=== PATIENT | female | born 1980 | race Hispanic/Latino ===

== ENCOUNTER 2016-12-03 22:31 | Emergency (ER) | payer OTHER ==
[~2016-12-03] VITALS: Ht 160 cm; Wt 121.1 kg
[~2016-12-03 22:31] MED LIST: ALPRAZOLAM1 M2 PO; BACTROBAN OINT.15 GM TOP; DEXILANT60 M1 PO; FLEXERIL10 MG PO; IBUPROFEN800 MG PO; KETOROLAC TROME10 M1 PO; MOTRIN800 MG PO; ORPHENADRINE C100 MG PO; PERCOCET 325 MG1 TA2 PO; VICODIN5-300 PO
[2016-12-03 22:33] VITALS: BP 150/87
[2016-12-03] MEDS ORDERED: MEDROL4 M2 PO (23:18)
[2016-12-03] MEDS ORDERED: PERCOCET 5-3251 EACH PO (23:18)
[2016-12-03] MEDS ORDERED: CYCLOBENZAPRINE10 M1 PO (23:18)
--- NOTE | 2016-12-03 23:19 | ED NECK/BACK PAIN COMPLAINT ---
History of Present Illness General Chief Complaint: Low Back Pain/Injury Stated Complaint: BACK PAIN SINCE YEST, NOW RADIATING DOWN L LEG Source: patient Exam Limitations: no limitations Vital Signs & Intake/Output Vital Signs & Intake/Output Vital Signs Date Time Temp Pulse Resp B/P Pulse O2 O2 Flow FiO2 Ox Delivery Rate 12/033 99.2 100 20 150/87 95 Room Air ED Intake and Output 12/04 0000 12/03 1200 Intake Total 0 Output Total Balance 0 Intake, Oral 0 Patient 267 lb Weight Allergies Coded Allergies: NO KNOWN ALLERGIES (06/15/16) Reconcile Medications Alprazolam 1 MG TABLET 1 TAB PO TIDPRN ANXIETY (Reported) Cyclobenzaprine HCl 10 MG TABLET 1 TAB PO TID SPASMS CYCLOBENZAPRINE HCL (Flexeril) 10 MG TAB 1 TAB PO 4 TIMES/DAY PRN MUSCLE SPASM CYCLOBENZAPRINE HCL (Flexeril) 10 MG TAB 1 TAB PO Q8H PRN spasm/pain Avoid operating motor vehicle or heavy machinery Dexlansoprazole (Dexilant) 60 MG CAP.DR.BP 1 CAP PO DAILY NEEDED SPASMS ( Reported) Ibuprofen (Motrin) 800 MG TAB 1 TAB PO Q8H PRN PAIN Ketorolac Tromethamine 10 MG TABLET 1 TAB PO Q6P PRN NECK PAIN PT GIVEN IM DOSE IN ED Methylprednisolone. (Medrol) 4 MG TAB.DS.PK 1 DP PO AD SCIATICA 6 on day 1 then reduce by one tablet daily until gone Orphenadrine Citrate 100 MG TABLET.ER 1 TAB PO BIDP PRN NECK SPASMS Oxycodone HCl/Acetaminophen (Percocet 5-325 MG Tablet) 5 MG-325 MG TABLET 1-2 TAB PO Q6P PRN pain OXYCODONE HCL/ACETAMINOPHEN (Percocet 5-325 MG Tablet) 325 MG/5 MG TAB 1 TAB PO Q6 PRN pain Triage Note: PT TO TRIAGE WITH C/O LEFT LOWER BACK PAIN 8/10 RADIATING TO LLE SINCE YESTERDAY. PT DENIES INJURY, TOOK TRAMADOL AT 5PM WITH NO RELIEF. NO OTHER COMPLAINTS. VSS. Triage Nurses Notes Reviewed? yes Onset: Abrupt Duration: day(s): (1), constant, continues in ED Timing: recent history Quality/Severity: moderate, severe Location: lumbar spine Radiation: none : No Patient currently breastfeeds: No HPI: 36-year-old female comes into emergency room with complaints of left lower back pain that radiates down into her left buttocks region down her left leg. Pain started this morning. Pain is getting progressively worse. Worse with any type of range of motion. Denies any urinary bowel dysfunction. Denies any recent falls or trauma. (JUSTYNA HUDSON) Past History Travel History Traveled to [place] past 21 day No Medical History Any Pertinent Medical History? see below for history Neurological: NONE EENT: NONE Cardiovascular: TETROLOGY OF FALOT Respiratory: NONE Gastrointestinal: NONE Hepatic: NONE Renal: NONE Musculoskeletal: NONE Psychiatric: NONE Endocrine: hypothyroidism Blood Disorders: NONE Cancer(s): NONE [employer]/Reproductive: NONE Surgical History Surgical History: CARDIAC SURGERY X2 FOR T OF F Psychosocial History What is your primary language Mauritanian Tobacco Use: Quit >30 days ago Family History Hx Contributory? No (JUSTYNA HUDSON) Review of Systems Review of Systems Constitutional: Reports: no symptoms. Eyes: Reports: no symptoms. Ears, Nose, Throat, Mouth: Reports: no symptoms. Respiratory: Reports: no symptoms. Cardiovascular: Reports: no symptoms. Gastrointestinal/Abdominal: Reports: no symptoms. Musculoskeletal: Reports: see HPI. Skin: Reports: no symptoms. Neurological/Psychological: Reports: no symptoms. All Other Systems: Reviewed and Negative (JUSTYNA HUDSON) Physical Exam Physical Exam General Appearance: well developed/nourished, mild distress Head: atraumatic Eyes: Bilateral: normal appearance. Ears, Nose, Throat, Mouth: hearing grossly normal, moist mucous membrane Neck: normal inspection, full range of motion Respiratory: normal breath sounds, no respiratory distress Cardiovascular: regular rate/rhythm Back: normal inspection Extremities: normal range of motion Motor: Deficit L4 Right: No Deficit L4 Left: No Deficit L5 Right: No Deficit L5 Left: No Deficit S1 Right: No Deficit S1 Right: No Neurologic/Psych: awake, alert, oriented x 3, normal mood/affect Skin: intact, normal color, warm/dry Comments: 5 out of 5 strength in the lower extremity, normal dorsiflexion of great toe bilaterally, gross sensation is intact, patellar tendon reflex 2+ bilaterally. (JUSTYNA HUDSON) Progress Differential Diagnosis: AAA, aortic dissection, C spine injury, carotid dissection, cauda equina syn, herniated disc, myofascial strain, pyelo/UTI, sciatica, spinal cord inj, thoracic outlet syn, T/L spine injury, ureterolithiasis Plan of Care: Current Medications Sig/Rc Start time Last Medication Dose Stop Time Status Admin Oxycodone/ 2 TAB ONCE ONE 12/035 UNVr Acetaminophen 12/04 2315 (Percocet) Comments: 12/04/2016 12:16:46 AM Patient clinically looks well. Nontoxic-appearing. In no apparent distress. Symptoms are most consistent with sciatica. No motor deficits. Follow-up with primary care doctor. Treated symptomatically. (WALTER PEPE,JUSTYNA) Departure Departure Disposition: HOME OR SELF CARE Condition: Stable Clinical Impression Primary Impression: Sciatica Referrals: DANDRE HURST DO (PCP/Family) Additional Instructions: Take Percocet and Medrol Dosepak and Flexeril as prescribed. Follow-up with your primary care doctor. Return if any concerns worsening symptoms. Please go over all results of today's visit with your primary care doctor. Contact your primary care doctor to let them know you were here in the emergency room. There may be nonspecific findings which may not be related to your visit today here in the emergency room but may require further evaluation and chronic monitoring by your primary care doctor. If you had a laceration today the chance of foreign body always remains. You should follow-up with your primary care doctor for recheck in 3-5 days for a wound check. If you had an x-ray done there is a chance that a fracture could have been missed on initial read and you should follow-up with your primary care doctor for repeat x-rays if symptoms persist. If your blood pressure was elevated here in the emergency room please have rechecked by her primary care doctor within the next 48 hours by your primary care doctor. If you were prescribed a narcotic here in the emergency room or any type of controlled substances you're not allowed to drive while taking this medication or operate any type of heavy machinery. Narcotics can make you feel lightheaded dizziness nausea and can cause constipation. You may need to pickle pumper a stool softener. Thank you for choosing [facility] emergency room. Please return to the emergency room immediately if you have any other concerns worsening of symptoms. Departure Forms: Customer Survey General Discharge Information Prescriptions: Current Visit Scripts Oxycodone HCl/Acetaminophen (Percocet 5-325 MG Tablet) 1-2 TAB PO Q6P PRN pain #20 TAB Cyclobenzaprine HCl 1 TAB PO TID #20 TAB Methylprednisolone. (Medrol) 1 DP PO AD #1 DP 6 on day 1 then reduce by one tablet daily until gone (JUSTYNA HUDSON) PA/SENIOR ACCOUNTING SPECIALIST Co-Sign Statement Statement: ED Attending supervision documentation- [] I saw and evaluated the patient. I have also reviewed all the pertinent lab results and diagnostic results. I agree with the findings and the plan of care as documented in the PA's/SENIOR ACCOUNTING SPECIALIST's documentation. [x] I have reviewed the ED Record and agree with the PA's/SENIOR ACCOUNTING SPECIALIST's documentation. [] Additions or exceptions (if any) to the PAs/SENIOR ACCOUNTING SPECIALIST's note and plan are summarized below: [] (CHAY PROCTOR,ERUM Clements)
== END 2016-12-03 23:25 ==
LOC: ERH 22:31
DX: M54.42 Lumbago with sciatica, left side (principal)

== ENCOUNTER 2016-12-20 02:56 | Inpatient (IN) | payer OTHER ==
[~2016-12-20] VITALS: Ht 160 cm; Wt 123.8 kg
[~2016-12-20 02:56] MED LIST changes: +CYCLOBENZAPRINE10 M1 PO; +MEDROL4 M2 PO; +PERCOCET 5-3251 EACH PO
--- NOTE | 2016-12-20 09:36 | Admission Core Measures ---
Admission Meds I reviewed the following Meds: Current Medications Sig/Rc Start time Last Medication Dose Stop Time Status Admin Cefazolin Sodium 3,000 MG ONCE 12/20 NR (Kefzol-Ancef Inj) 12/20 2358 Heparin Sodium 5,000 UNIT ONCE 12/20 NR (Porcine) 12/20 2358 Acute Coronary Syndrome Inclusion Criteria ACS Diagnosis No Inpatient Core Measures LDL Reminder: If No, please order W/I first 24hr of stay Congestive Heart Failure Inclusion Criteria CHF Diagnosis No Cerebrovascular accident Inclusion Criteria CVA/TIA Diagnosis No Inpatient Core Measures Bedside Swallow Eval Reminder: If BSE failed, place ST order Antithrombotic Reminder: Order Antithrombotic Medication by end of day 2 Antithrombotic Reminder: Document Reason Antithrombotic Not ordered by end of day 2 AFIB/Flutter Reminder: If Present, add to problem list AFIB/Flutter Reminder: Order Anticoag Medication for pts with AFIB/Flutter Atherosclerosis Reminder: If Present, add to problem list LDL Reminder: If No, please order W/I first 24hr of stay PT Order Reminder: If No, please order Venous thromboembolism Inpatient Core Measures VTE Risk Factors: Age > 40, Obesity, Surgery [facility] prophylaxis d/t No contraindications No VTE Pharm Prophylaxis d/t No contraindications Inclusion Criteria - Per Current guidelines, there needs to be overlap - treatment for the first 5 days of Warfarin therapy. - Parenteral Anticoagulation (IV or SC) needs to be - given along with Warfarin therapy. VTE Diagnosis No VTE Type NONE VTE Confirmed by (Test) NONE Problem List As ranked by this Provider includes Assessment & Plan 1. S/P laparoscopic sleeve gastrectomy 2. Morbid obesity HOME MEDS Home Med List Alprazolam 1 MG TABLET 1 TAB PO TIDPRN ANXIETY (Reported) Cyclobenzaprine HCl 10 MG TABLET 1 TAB PO TID SPASMS CYCLOBENZAPRINE HCL (Flexeril) 10 MG TAB 1 TAB PO 4 TIMES/DAY PRN MUSCLE SPASM CYCLOBENZAPRINE HCL (Flexeril) 10 MG TAB 1 TAB PO Q8H PRN spasm/pain Dexlansoprazole (Dexilant) 60 MG CAP.DR.BP 1 CAP PO DAILY NEEDED SPASMS ( Reported) Ibuprofen (Motrin) 800 MG TAB 1 TAB PO Q8H PRN PAIN Ketorolac Tromethamine 10 MG TABLET 1 TAB PO Q6P PRN NECK PAIN Methylprednisolone. (Medrol) 4 MG TAB.DS.PK 1 DP PO AD SCIATICA Orphenadrine Citrate 100 MG TABLET.ER 1 TAB PO BIDP PRN NECK SPASMS Oxycodone HCl/Acetaminophen (Percocet 5-325 MG Tablet) 5 MG-325 MG TABLET 1-2 TAB PO Q6P PRN pain OXYCODONE HCL/ACETAMINOPHEN (Percocet 5-325 MG Tablet) 325 MG/5 MG TAB 1 TAB PO Q6 PRN pain
--- NOTE | 2016-12-20 09:50 | Patient Discharge Instructions ---
Discharge Instructions General Discharge Information You were seen/treated for: morbid obesity You had these procedures: laparoscopic sleeve gastrectomy, hiatal hernia repair (12/20/16) Watch for these problems: fever>101.3, increased pain, redness/swelling/drainage, abdominal pain, dizziness, shortness of breath No bath, but you may shower: Yes Other wound care: ok to remove outer dressings. leave white steri strips in place. expect drainage from previous drain site, for which you may use dry guaze to cover until the drainage stops. Diet Continue normal diet: No Recommended Diet: Bariatric Activity Full Activity/No Limits: No Activity Self Limited: Yes Pounds, do NOT lift more than: 10 Other activity limits: walk frequently Acute Coronary Syndrome Inclusion Criteria At DC or during hospital stay patient has or had the following: ACS DIAGNOSIS No Discharge Core Measures Meds if any: Prescribed or Continued at Discharge Meds if any: NOT Prescribed or Continued at Discharge Congestive Heart Failure Inclusion Criteria At DC or during hospital stay patient has or had the following: CHF DIAGNOSIS No Discharge Core Measures Meds if any: Prescribed or Continued at Discharge Meds if any: NOT Prescribed or Continued at Discharge Cerebrovascular accident Inclusion Criteria At DC or during hospital stay patient has or had the following: CVA/TIA Diagnosis No Discharge Core Measures Meds if any: Prescribed or Continued at Discharge Meds if any: NOT Prescribed or Continued at Discharge Venous thromboembolism Inclusion Criteria VTE Diagnosis No VTE Type NONE VTE Confirmed by (Test) NONE Discharge Core Measures - Per Current guidelines, there needs to be overlap - treatment for the first 5 days of Warfarin therapy. - If discharged on Warfarin prior to 5 days of - overlap therapy, the patient will need to be - assessed for post discharge needs including - *Post discharge parental anticoagulation - *Warfarin and/or parental anticoagulation education - *Follow up date to check INR post discharge At least 5 days overlap therapy as Inpatient No Meds if any: Prescribed or Continued at Discharge Note: Overlap Therapy is Warfarin and Anticoagulant Meds if any: NOT Prescribed or Continued at Discharge
--- NOTE | 2016-12-20 09:54 | Surg Short-stay <48hrs Dis Sum ---
Visit Information Visit Dates Admission Date: 12/20/16 Discharge Date: 12/23/16 Surgical Short Stay DC Summary Admission Diagnosis: morbid obesity Final Diagnosis: morbid obesity Procedure(s): laparoscopic sleeve gastrectomy, hiatal hernia repair (12/20/16) Summary/Significant Findings: Electively scheduled laparoscopic sleeve gastrectomy and hiatal hernia repair by on 12/20/16, which went routinely. Stage 1 bariatric diet started immediately post-operatively. Pain medication transitioned from iv to oral prior to discharge. Her discharge was held an extra day due to worsened nausea on post -op day #2. The VIKASH drain removed prior to discharge to home on post-op day#3. She was no longer nauseous and tolerating stage 1 bariatric diet at the time of her discharge. Condition at Discharge: stable Discharge Disposition: home or self care Discharge instructions provided to patient/family: Yes Post discharge follow-up plan: follow up appointment within one week weekly bariatric stage diet advancements as tolerated
--- NOTE | 2016-12-20 14:01 | Operative Report ---
Operative/Inv Procedure Report Surgery Date: 12/20/16 Name of Procedure: Laparoscopic Sleeve Gastrectomy, Laparoscopic Hiatal hernia repair Pre-Operative Diagnosis: Morbid Obesity BMI 49, Hiatal hernia Post-Operative Diagnosis: Same Estimated Blood Loss: less than 50ml Surgeon/Student Assistant: VIRIDIANA GAGE DO Anesthesia: general endotracheal tube IV Fluids: 1200 cc Drains: 10 Fr RUQ VIKASH Drain Specimens: Stomach Complications: None Condition: Stable Operative Indication: This is a 36-year-old female that presented to the office for workup for bariatric surgery. After appropriate workup was completed we discussed with the patient the band, the sleeve, and the gastric bypass. The patient chose to undergo a sleeve gastrectomy. All risks including but not limited to bleeding, infection, leak, stricture, injury to surrounding bowel/esophagus/stomach/liver/ spleen, long-term reflux, DVT/PE, and mortality of 08/999 patients were discussed in detail. Patient understood everything and decided to proceed. Operative/Procedure Note Note: The patient was brought to the operating room and placed on the operating room table in supine position. Venodyne stockings were placed and adequate general endotracheal anesthesia was obtained. The patient was prepped and draped in standard surgical fashion. Began the procedure by making a 2 cm transverse incision supraumbilically and slightly to the left of the midline. Then using a 12 mm clear Visiport and a 10 mm 0 laparoscope, the abdominal cavity was accessed. Great care was taken to go through the anterior rectus sheath, the posterior rectus sheath, and through the peritoneum. Once we entered the peritoneum the abdominal cavity was insufflated to 15 mmHg. Upon initial examination no obvious gross pathology was seen. Accessory trocars were placed, 5 mm in the epigastrium for the Lazara liver retractor. The retractor was inserted and the liver was retracted anteriorly exposing the hiatus, small hiatal hernia was seen. 5 mm ports were placed in the right and left upper quadrant, a 5 mm left lateral port, and a 15 mm right lateral port. Some omental adhesions from anterior abdominal wall were lysed usign harmonic scalpel. Began the procedure by mobilizing the greater curvature of the stomach approximately 7 cm from the pylorus. Once the retrogastric space was reached the whole greater curvature was mobilized maintaining hemostasis using Harmonic scalpel. Full hiatal dissection was performed, a small hiatal hernia was seen. The left román of the diaphragm was dissected away from the esophagus, reducing the hernia sac. We then brought our attention to the right román, the pars flaccida was opened until the right román was clearly visualized. Following this the right román was dissected away from the esophagus as well and the esophagus was circumferentially dissected out of the chest. At the completion of dissection the esophagus was in the abdominal cavity for about 2-3 cm. The esophagus was retracted anteriorly and the hiatus was closed using 2-0 Tycron suture. At the completion of the closure there was ample room for the esophagus and the hiatus was adequately closed. Posterior adhesions were taken down using Harmonic scalpel as well. Once the stomach was adequately mobilized a 38 Montenegrin bougie was inserted and placed along the lesser curvature of the stomach. Once the bougie was in the appropriate position will began creating our sleeve, two 60 mm black staple loads with seamguard followed by two 60 mm purple staple loads with seamguard as well and finished with a 45 mm puple plain load. Great care was taken to leave ample room at the incisura angularis, to prevent any twisting or kinking of the sleeve, to stay lateral to the esophagogastric fat pad, and to do a full fundal excision. At the completion of the staple line the staple line was examined, it appeared intact and no obvious bleeding was noted. The bougie was removed, the sleeve was lying nicely without any twisting or kinking. The resected stomach was removed through the right lateral port site. The port and the left upper quadrant were irrigated until clear. A 10 Montenegrin VIKASH drain was placed through the right upper quadrant incision under the liver and over the spleen. All ports were removed under direct visualization no obvious bleeding was noted. The 15 mm port site fascia was closed using 0 Vicryl suture. The skin was closed using 4-0 Monocryl. Steri-Strips and dressings were placed. The patient was successfully extubated and transferred to the recovery room in stable condition. The patient tolerated the procedure well with no complications. Findings: 3 cm hiatal hernia, 38 Fr Bougie CC: DANDRE HURST DO
[2016-12-20 16:00] VITALS: BP 142/70
--- NOTE | 2016-12-20 16:54 | PN- Bariatrics ---
Subjective Subjective: The patient seen this afternoon postoperatively. She reports being tired but otherwise relatively comfortable. She has started taking in a stage I diet and has no complaints of nausea. She has no other issues and denies any chest pain or difficulty breathing. Objective Vital Signs and I&Os Vital Signs Date Time Temp Pulse Resp B/P B/P Pulse O2 O2 Flow FiO2 Mean Ox Delivery Rate 12/20 1600 97.4 86 18 142/70 94 Room Air Room Air I's and O's: 1150 ML's in of lactated Ringer's/patient's hip to void/VIKASH 40 ML/ EBL less than 100 Physical Exam: Gen.: Sleepy but easily arousable and in no obvious distress Skin: Warm and dry Cardiac: S1-S2 regular Pulmonary: Bilateral breath sounds were equal good exchange Abdomen: Soft, obese, appropriate incisional tenderness, bowel sounds sluggish. VIKASH 1 holding suction with serosanguineous drainage and bulb. Surgical dressings are clean, dry, and intact. Extremities: Bilateral lower extremities are warm without calf tenderness or significant edema. Assessment/Plan Assessment/Plan Assessment: 36-year-old female status post laparoscopic sleeve gastrectomy. Postoperatively patient is progressing as expected and pains in adequate control. She is tolerating a stage I diet without nausea. Plan: Stage I diet until midnight been nothing by mouth for possible upper GI in the morning Out of bed and ambulate Continue current pain regiment Monitor for postoperative void Strict I's and O's GI and DVT prophylaxis Continue IV fluids until the morning GI and DVT prophylaxis 2 doses of prophylactic postoperative antibiotics Incentive spirometry Core Measures/Miscellaneous Venous Thromboembolism VTE Risk Factors: Age > 40, Obesity, Surgery VTE Contraindications: No Contraindications VTE Diagnosis: No VTE Type: NONE VTE Confirmed by (Test): NONE Beta Shelby Is Beta Shelby a Home Med? No Antibiotics Is Patient on Antibiotics? Yes If Yes: prophylaxis
--- NOTE | 2016-12-20 18:16 | NUR ---
NURSING NOTE: PT ARRIVED TO FLOOR AT 1600. PT A&O, VSS CHARTED. PT AMBULATED FROM STRETCHER TO ROOM. PT HAS NO C/O PAIN OR NAUSEA AT THIS TIME. EDUCATED ON DIET AND NEED FOR FREQUENT AMBULATION WITH VERBAL UNDERSTANDING. IST @ BEDSIDE.
[2016-12-20 22:50] VITALS: BP 116/68
[2016-12-21 06:14] VITALS: BP 122/78
--- NOTE | 2016-12-21 07:05 | PN- Bariatrics ---
See Addendum Subjective Subjective: The patient was seen this morning postoperatively day #1. She complains of some incisional soreness but is otherwise relatively comfortable. She was tolerating a stage I diet without nausea until midnight continues to be without nausea. She has no complaints of current time and denies any chest pain or difficulty breathing. Objective Vital Signs and I&Os Vital Signs Date Time Temp Pulse Resp B/P B/P Pulse O2 O2 Flow FiO2 Mean Ox Delivery Rate 12/21 0614 98.2 68 20 122/78 98 Room Air 12/21 0600 Room Air 12/21 0000 Room Air 12/21 0000 95 Room Air 12/20 2250 97.2 73 18 116/68 97 Room Air 12/20 2000 Room Air 12/20 1600 94 Room Air Room Air 12/20 1600 97.4 86 18 142/70 94 Room Air Room Air Intake & Output 12/21 0800 / 0000 / 1600 / 0800 12/20 0000 / 1600 Intake Total 1000 820 Output Total 610 850 Balance 390 -30 Intake, IV 1000 500 Intake, Oral 0 320 Output, 10 50 Drainage Output, Urine 600 800 Patient 273 lb Weight Physical Exam: Gen.: Alert and in no obvious distress Skin: Warm and dry without jaundice Cardiac: S1-S2 regular Pulmonary: Bilateral breath sounds are equal with good exchange Abdomen: Soft, obese, appropriate incisional tenderness, bowel sounds positive. VIKASH 1 holding suction with serosanguineous drainage in the bulb. Port sites are clean, dry, and intact. Extremities: Bilateral lower extremities are warm without calf tenderness or significant edema. Assessment/Plan Assessment/Plan Assessment: 28-year-old female status post lap scopic sleeve gastrectomy with hiatal hernia repair postoperative day 1. The patient is progressing as expected and her pain is under adequate control. Plan: Cancele upper GI for this morning and started a stage I diet Decrease IV fluids Follow-up morning labs 3 studies GI and DVT prophylaxis Continue current pain regiment Incentive spirometry Out of bed and ambulate Core Measures/Miscellaneous Venous Thromboembolism VTE Risk Factors: Age > 40, Obesity, Surgery VTE Contraindications: No Contraindications VTE Diagnosis: No VTE Type: NONE VTE Confirmed by (Test): NONE Beta Shelby Is Beta Shelby a Home Med? No Antibiotics Is Patient on Antibiotics? No
[2016-12-21 08:27] LABS: ABSOLUTE BASOPHIL COUNT 0 /CUMM (0.0-0.2); ABSOLUTE EOSINOPHIL COUNT 0 /CUMM (0.0-0.7); ABSOLUTE GRANULOCYTE CT 9.5 /CUMM (1.4-6.5); ABSOLUTE LYMPH COUNT 0.9 /CUMM (1.2-3.4); ABSOLUTE MONOCYTE COUNT 0.5 /CUMM (0.10-0.60); BASOPHIL % 0.1 % (0.0-2.0); EOSINOPHIL % 0 % (0-5); HEMATOCRIT 34.4 % (37-47); MEAN CORPUSCULAR HGB CONC 33.3 G/DL (33.0-37.0); MEAN CORPUSCULAR VOLUME 78.1 FL (81.0-99.0); MEAN PLATELET VOLUME 10.9 FL (7.4-10.4); PLATELET COUNT 269 /CUMM (130-400); RBC DISTRIBUTION WIDTH 15.1 % (11.5-14.5); RED BLOOD CELL CT 4.41 /CUMM (4.20-5.40)
[2016-12-21 09:08] LABS: GRANULOCYTE % 86.6 % (42.2-75.2)
--- NOTE | 2016-12-21 11:00 | NUR ---
NURSING NOTE: PT GIVEN HYCET FOR ABD PAIN AT 1016. AT 1055 NURSE CALLED TO ROOM BY PT BECAUSE SHE THOUGH SHE WAS HAVING A REACTION TO THE HYCET. PT STATES SHE IS VERY ITCHY, NO HIVES NOTED AT THIS TIME. BP 120/72, PULSE 68, TEMP 98.2, 98% ON RA. MY CHRISTIE AWARE AND 25MG IV BENADRYL ORDERED AND GIVEN. WILL CONTINUE TO MONITOR.
[2016-12-21] MEDS ORDERED: PROTONIX40 M3 PO (13:56)
[2016-12-21] MEDS ORDERED: DILAUDID2 M1 PO (13:56)
[2016-12-21 14:04] VITALS: BP 128/84
[2016-12-21 22:41] VITALS: BP 117/73
[2016-12-22 06:20] VITALS: BP 128/82
--- NOTE | 2016-12-22 07:31 | NUR ---
NURSING NOTE: PT C/O 04/29 ABOMINAL PAIN AND SLIGHT NAUSEA. PT PLACED RELETEX BRACELET BACK ON, ASKING FOR ULTRAM; ULTRAM GIVEN, Collette PEPE AWARE, PT GOING TO AMBULATE IN HALLWAY
--- NOTE | 2016-12-22 08:13 | PN- Bariatrics ---
See Addendum Subjective Subjective: Reports pain and nausea this morning. She spit up once this morning. She did well drinking yesterday and didn't have nausea until this morning. She is ambulating well. No dizziness. No shortness of breath. No chest pains. Voiding without difficulty. No flatus or bm yet. Objective Vital Signs and I&Os Vital Signs Date Time Temp Pulse Resp B/P B/P Pulse O2 O2 Flow FiO2 Mean Ox Delivery Rate 12/23 619 98.5 70 20 128/82 94 Room Air 12/22 0600 96 Room Air 12/21 2241 97.9 66 18 117/73 99 Room Air 12/21 2200 99 Room Air 12/21 1404 97.9 72 20 128/84 100 12/21 1400 98 Room Air Room Air 12/21 1328 Room Air Room Air Intake & Output 12/22 1600 12/22 0800 12/22 0000 12/21 1600 12/21 0800 12/21 0000 Intake Total 700 1320 1230 1000 820 Output Total 853 855 8975 610 850 Balance 370 800 130 390 -30 Intake, IV 600 896 590 5708 500 Intake, Oral 100 720 630 0 320 Number 0 Bowel Movements Output, 30 20 50 10 50 Drainage Output, Urine 525 840 1666 600 800 Patient 273 lb Weight Physical Exam: General - alert & oriented x 3. comfortable. no acute distress. Lungs - clear bilaterally. no w/r/r. Cardiac - s1s2. reg. Abdomen - soft. bryan-incisional tenderness. dressings c/d/i. VIKASH drain with serous drainage. Extremities - warm bilaterally. no c/c/e. calves soft and nontender b/l. Assessment/Plan Assessment/Plan This 36 year old old female is POD#2 s/p lap sleeve gastrectomy, hiatal hernia repair tolerated stage 1 diet well yesterday reports nausea this morning zofran / reletex band in place willing to try dulcolax this morning oob/ambulating well ultram / toradol prn pain control protonix - gi ppx hep sc - dvt ppx d/c VIKASH drain prior to d/c home will d/w Core Measures/Miscellaneous Venous Thromboembolism VTE Risk Factors: Age > 40, Obesity, Surgery VTE Contraindications: No Contraindications VTE Diagnosis: No VTE Type: NONE VTE Confirmed by (Test): NONE Beta Shelby Is Beta Shelby a Home Med? No Antibiotics Is Patient on Antibiotics? No
[2016-12-22 14:18] VITALS: BP 120/60
[2016-12-22 22:57] VITALS: BP 128/76
[2016-12-23 06:34] VITALS: BP 108/62
--- NOTE | 2016-12-23 07:09 | PN- Bariatrics ---
Subjective Subjective: Feeling much better today. Tolerating bariatric diet. No nausea. Passing flatus. Ambulating well. No dizziness. No shortness of breath. No chest pains. Anticipates discharge home today. Objective Vital Signs and I&Os Vital Signs Date Time Temp Pulse Resp B/P B/P Pulse O2 O2 Flow FiO2 Mean Ox Delivery Rate 12/23 0534 98.2 65 20 108/62 96 12/22 2257 98.2 62 20 128/76 97 Room Air 12/22 2200 Room Air 12/22 1418 98.3 65 18 120/60 96 Room Air 12/22 1400 Room Air Intake & Output 12/23 0800 12/23 0000 12/22 1600 12/22 0800 12/22 0000 12/21 1600 Intake Total 345 7046 361 2797 1230 Output Total 680 550 078 0042 Balance 345 595 370 800 130 Intake, IV 225 525 600 600 600 Intake, Oral 120 750 100 720 630 Number 0 Bowel Movements Output, 80 30 20 50 Drainage Output, Urine 600 121 168 6115 Physical Exam: General - alert & oriented x 3. comfortable. no acute distress. Lungs - clear bilaterally. no w/r/r. Cardiac - s1s2. reg. Abdomen - soft. expected bryan-incisional drainage. dressings c/d/i. VIKASH with serosang drainage. Extremities - warm bilaterally. no c/c/e. calves soft and nontender b/l. Assessment/Plan Assessment/Plan This 36 year old old female is POD#3 s/p lap sleeve gastrectomy, hiatal hernia repair tolerating bariatric diet nausea resolved pain controlled with ultram oob/ambulating well protonix - gi ppx hep sc - dvt ppx VIKASH drain removed d/c home today will d/w Core Measures/Miscellaneous Venous Thromboembolism VTE Risk Factors: Age > 40, Obesity, Surgery VTE Contraindications: No Contraindications VTE Diagnosis: No VTE Type: NONE VTE Confirmed by (Test): NONE Beta Shelby Is Beta Shelby a Home Med? No Antibiotics Is Patient on Antibiotics? No
[2016-12-23] MEDS ORDERED: ULTRAM50 M1 PO (07:12)
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
== END 2016-12-23 11:00 | DRG 621 ==
LOC: SDA 02:56 → ENRESERV 15:08 → 2NB 15:59 → ENPENDDIS 12-23 07:10 → 2NB 12-23 11:00
PROVIDERS: Physician Assistant; ADMIT Surgery
PROC: 0BQS4ZZ (ICD-10-PCS; principal; 2016-12-20)
PROC: 0DB64Z3 Excision of Stomach, Percutaneous Endoscopic Approach, Vertical (ICD-10-PCS; principal; 2016-12-20)
PROC: 0BQR4ZZ (ICD-10-PCS; principal; 2016-12-20)
DX: E66.01 Morbid (severe) obesity due to excess calories (principal); K44.9 Diaphragmatic hernia without obstruction or gangrene; Z68.42 Body mass index [BMI] 45.0-49.9, adult; Q21.8 Other congenital malformations of cardiac septa; Z87.891 Personal history of nicotine dependence
CPT/HCPCS: 2NBP; 81025; 82436; 88307; J0131; J0690; J1100; J1170; J1200; J1630; J1644; J1720; J1885; J2405; J7042

== ENCOUNTER 2017-12-25 23:05 | Emergency (ER) | payer OTHER ==
[~2017-12-25 23:05] MED LIST changes: +AUGMENTIN 875-1 EACH PO; +DICYCLOMINE HCL10 M1 PO; +DILAUDID2 M1 PO; +PROTONIX40 M3 PO; +ULTRAM50 M1 PO; +ZOFRAN ODT4 M1 SL
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
[2017-12-26 02:20] VITALS: BP 140/63
[2017-12-26] MEDS ORDERED: ORPHENADRINE C100 MG PO (02:25)
[2017-12-26] MEDS ORDERED: DICLOFENAC SODI75 M2 PO (02:25)
== END 2017-12-26 02:32 ==
LOC: ERH 23:05
DX: S16.1XXA Strain of muscle, fascia and tendon at neck level, initial encounter (principal); V49.40XA Driver injured in collision with unspecified motor vehicles in traffic accident, initial encounter; Y92.410 Unspecified street and highway as the place of occurrence of the external cause
CPT/HCPCS: 72050; 81025